=== PATIENT | female | born 1990 | race Hispanic/Latino ===

== ENCOUNTER 2016-11-23 09:15 | Emergency (ER) | payer OTHER ==
[2016-11-23 09:19] VITALS: PULSE 71; RESP 19; TEMP 98.2; O2SAT 100
--- NOTE | 2016-11-23 09:42 | ED PDOC ---
HPI: Allergic Reaction Time Seen by Provider: 11/23/16 09:21 Chief Complaint (Nursing): Allergic Reaction History Per: Patient History/Exam Limitations: no limitations Onset/Duration Of Symptoms: Gradual (this am awoke with sx) Possible Cause: Seasonal Allergies Associated Symptoms: Swelling, Trouble Swallowing. denies: Skin Rash, Dyspnea, Dizziness, Itching, Redness, Chest Pain Home/EMS Treatment: None Severity: Mild Additional History Per: Patient Additional Complaint(s): no hx of anaphylaxis no lh/sob//v/d Past Medical History Reviewed: Historical Data, Nursing Documentation, Vital Signs Vital Signs: Last Vital Signs Temp 98.2 F 11/23/16 09:17 Pulse 71 11/23/16 09:17 Resp 19 11/23/16 09:17 BP 121/74 11/23/16 09:17 Pulse Ox 100 11/23/16 09:17 - Family History Family History: States: Unknown Family Hx - Living Arrangements Living Arrangements: With Family - Home Medications Home Medications: Ambulatory Orders Medication Instructions Recorded Epinephrine HCl [Epipen 0.3 mg MR PRN PRN #1 unit 11/23/16 Auto-Injector] Famotidine [Pepcid] 20 mg PO BID #4 tab 11/23/16 Loratadine [Claritin] 10 mg PO DAILY #30 tab 11/23/16 Methylprednisolone [Medrol Dose 4 mg PO DAILY #21 mg 11/23/16 Pack (21 tabs)] - Allergies Allergies/Adverse Reactions: Allergies Allergy/AdvReac Type Severity Reaction Status Date / Time oseltamivir [From Tamiflu] Allergy RASH Verified 11/23/16 10:37 Review of Systems ROS Statement: Except As Marked, All Systems Reviewed And Found Negative Constitutional: Negative for: Fever, Chills ENT: Positive for: Mouth Swelling (upper lip), Throat Swelling Cardiovascular: Negative for: Chest Pain, Palpitations Respiratory: Negative for: Cough, Shortness of Breath Gastrointestinal: Negative for: Nausea, Vomiting, Abdominal Pain, Diarrhea Skin: Negative for: Rash Neurological: Negative for: Weakness, Numbness Physical Exam - Reviewed Nursing Documentation Reviewed: Yes Vital Signs Reviewed: Yes - Physical Exam Appears: Positive for: Uncomfortable Head Exam: Positive for: ATRAUMATIC, NORMAL INSPECTION, NORMOCEPHALIC Skin: Positive for: Normal Color, Warm, Dry. Negative for: Rash Eye Exam: Positive for: Normal appearance, EOMI, PERRL ENT: Positive for: Pharynx Is (no swelling s/p tonsilectomy) Neck: Positive for: Normal, Painless ROM, Supple Cardiovascular/Chest: Positive for: Regular Rate, Rhythm, Chest Non Tender. Negative for: Edema, Gallop, Murmur, Bradycardia, Tachycardia Respiratory: Positive for: Normal Breath Sounds. Negative for: Decreased Breath Sounds, Accessory Muscle Use, Crackles, Rales, Rhonchi, Stridor, Wheezing , Respiratory Distress Gastrointestinal/Abdominal: Positive for: Normal Exam, Bowel Sounds, Soft. Negative for: Tenderness Back: Positive for: Normal Inspection. Negative for: L CVA Tenderness, R CVA Tenderness Extremity: Positive for: Normal ROM. Negative for: Tenderness, Pedal Edema Neurologic/Psych: Positive for: Alert, pipe crew foreman II-XII, Oriented. Negative for: Motor/Sensory Deficits - Laboratory Results Result Diagrams: 11/23/16 10:30 11/23/16 10:30 - ECG O2 Sat by Pulse Oximetry: 100 Pulse Ox Interpretation: Normal - Progress ED Course And Treament: sx markedly improved will d/c home. advise epi use if worse Re-evaluation Time: 12:49 Condition: Improved Disposition - Clinical Impression Clinical Impression: Acute allergic reaction - Patient ED Disposition Is Patient to be Admitted: No Counseled Patient/Family Regarding: Studies Performed, Diagnosis, Need For Followup - Disposition Referrals: [facility] [Outside] (or pmd in 2 days) Disposition: Routine/Home Disposition Time: 12:51 Condition: GOOD Prescriptions: Epinephrine HCl [Epipen Auto-Injector] 0.3 mg MR PRN PRN #1 unit PRN Reason: Anaphylaxis Famotidine [Pepcid] 20 mg PO BID #4 tab Loratadine [Claritin] 10 mg PO DAILY #30 tab Methylprednisolone [Medrol Dose Pack (21 tabs)] 4 mg PO DAILY #21 mg Instructions: Angioedema (ED)
[2016-11-23] MEDS ORDERED: DiphenhydrAMINE 50 mg/ml Inj IVP STA (10:48)
[2016-11-23] MEDS ORDERED: DiphenhydrAMINE 50 mg/ml Inj ONE (10:51)
[2016-11-23 10:54] LABS: BLOOD UREA NITROGEN 13 mg/dl (7-17); CALCIUM 9.1 mg/dL (8.4-10.2); CARBON DIOXIDE 23 mmol/L (22-30); CHLORIDE 106 mmol/L (98-107); GFR AFRICAN-AMERICAN > 60; GLUCOSE,RANDOM 85 mg/dL (65-105); POTASSIUM 4.1 MMOL/L (3.6-5.0); SODIUM 138 mmol/l (132-148)
[2016-11-23 10:55] LABS: HEMATOCRIT 34.8 % (34.0-47.0); MEAN CELL VOLUME 91.5 fl (81.0-99.0); MEAN CORPUSCULAR HEMOGLOBIN 30.9 pg (27.0-31.0); MEAN CORPUSCULAR HGB CONC 33.8 g/dL (33.0-37.0); WHITE BLOOD COUNT 6.4 K/uL (4.8-10.8)
[2016-11-23 13:06] VITALS: BP 110/63
== END 2016-11-23 13:05 | disposition home or self-care (01) ==
LOC: H.ER 09:15
DX: T78.40XA Allergy, unspecified, initial encounter (principal)